=== PATIENT | male | born 1970 | race Caucasian/White ===

== ENCOUNTER 2020-01-19 20:46 | Emergency (ER) | payer OTHER, SELFPAY ==
[~2020-01-19] VITALS: Ht 172.7 cm; Wt 77.1 kg
[2020-01-19 20:47] VITALS: Ht 172.7 cm; Wt 77.1 kg
[2020-01-19 22:58] VITALS: BP 130/86
== END 2020-01-19 22:58 | disposition home or self-care (01) ==
LOC: ED 20:46
DX: U07.1 COVID-19 (principal)
CPT/HCPCS: Q0092; U0003-CS

== ENCOUNTER 2020-09-06 09:36 | Emergency (ER) | payer OTHER ==
[~2020-09-06] VITALS: Ht 167.6 cm; Wt 70.8 kg
[2020-09-06 09:48] VITALS: Ht 167.6 cm; Wt 70.8 kg
--- NOTE | 2020-09-06 10:02 | NUR ---
PT BIB SELF C/C BAER FEVER X [address] TO [facility]
--- NOTE | 2020-09-06 10:35 | NUR ---
DR KEVIN AT BEDSIDE TO EVAL
[2020-09-06 11:11] LABS: BASOPHIL % 0.6 % (0.2-1.5); PLATELET COUNT 195 x10^3mcL (152-348); RED CELL DISTRIBUTION WIDTH 13.6 % (12.1-16.2)
[2020-09-06 11:37] LABS: CALCIUM 8.3 mg/dL (8.5-10.1); CARBON DIOXIDE 22.5 mmol/L (21-32); CHLORIDE SERUM 98 mmol/L (98-107); GFR1 > 60 mL/min; GLUCOSE SERUM 147 mg/dL (74-106); POTASSIUM SERUM 3.6 mmol/L (3.5-5.1); SODIUM SERUM 132 mmol/L (136-145)
[2020-09-06 11:41] LABS: ALKALINE PHOSPHATASE 77 U/L (46-116); ALT/SGPT 124 U/L (16-63); AST/SGOT 105 U/L (15-37); BILIRUBIN TOTAL 0.51 mg/dL (0.20-1.00); LACTIC DEHYDROGENASE (LDH) 396 U/L (100-190); TOTAL PROTEIN, SERUM 7.6 g/dL (6.4-8.2)
[2020-09-06 11:43] LABS: ALBUMIN 3.1 g/dL (3.4-5.0)
[2020-09-06 11:47] LABS: UA SPECIFIC GRAVITY 1.025 (1.005-1.035); microscopic required? YES; urine erythrocyte TRACE (NEGATIVE)
--- NOTE | 2020-09-06 12:10 | NUR ---
PLEASE ENTER FULL NAMES OF DIRECTOR OF TRAUMA/RN Patient data collected by (DIRECTOR OF TRAUMA): SARAH COPELAND DIRECTOR OF TRAUMA Assessment reviewed and completed by (RN): SUBHASH HINTON RN
--- NOTE | 2020-09-06 14:00 | NUR ---
RECEIVED REPORT FORM KURT INFANTE, I WILL ASSUME FURTHER CARE OF THIS PATIENT.
[2020-09-06 14:45] VITALS: BP 118/77
== END 2020-09-06 14:45 | disposition still patient (30) ==
LOC: ED 09:36 → DU 13:53
PROVIDERS: Emergency Medicine
DX: R51.9 Headache, unspecified (principal); M79.10 Myalgia, unspecified site; R06.02 Shortness of breath; Z20.822 Contact with and (suspected) exposure to COVID-19
CPT/HCPCS: 36600; 83880; 85378; 87804; G0378; J2270; J2405; J7030; U0003